=== PATIENT | female | born 1965 | race Caucasian/White ===

== ENCOUNTER → 2016-08-22 | Outpatient (CLI) | payer OTHER | LOC: FIMAGING 12:39 | PROVIDERS: ATTEND Obstetrics & Gynecology | DX: N63 Unspecified lump in breast (principal) | CPT/HCPCS: G0206 ==

== ENCOUNTER → 2017-02-07 | Outpatient (CLI) | payer OTHER | LOC: FIMAGING 15:09 | PROVIDERS: ATTEND Obstetrics & Gynecology | DX: Z12.31 Encounter for screening mammogram for malignant neoplasm of breast (principal); Z80.3 Family history of malignant neoplasm of breast | CPT/HCPCS: G0202 ==

== ENCOUNTER → 2018-02-08 | Outpatient (CLI) | payer OTHER | LOC: FIMAGING 09:39 | PROVIDERS: ATTEND Obstetrics & Gynecology | DX: Z12.31 Encounter for screening mammogram for malignant neoplasm of breast (principal); Z80.3 Family history of malignant neoplasm of breast ==

== ENCOUNTER 2018-10-27 15:04 | Emergency (ER) | payer OTHER ==
[2018-10-27 15:13] VITALS: BP 116/71
[2018-10-27] MEDS ORDERED: TDAP ADULT 0.5 ML INJ (BOOSTRIX) IM ONE (15:14)
--- NOTE | 2018-10-27 15:18 | EDPHY ---
H & P Stated Complaint: Avulsed R index knuckle working artemio sink. Bleed controlled. Source: Patient Exam Limitations: No limitations - Personal History Current Tetanus/Diphtheria Vaccine: Unsure - Medical/Surgical History Hx Asthma: No Hx Chronic Respiratory Disease: No Hx Diabetes: No Hx Cardiac Disease: No Hx Renal Disease: No Hx Cirrhosis: No Hx Alcoholism: No Hx HIV/AIDS: No Hx Splenectomy or Spleen Trauma: No Other PMH: Meniers Disease, appendectomy - Social History Smoking Status: Never smoked Time Seen by Provider: 10/27/18 15:14 HPI/ROS: HPI: This is a 52-year-old female who presents with Chief Complaint: Laceration right index finger Location: Right index finger Quality: Laceration Duration: Prior to arrival Signs and Symptoms: + bleeding, no radiation, no numbness, no weakness, no tingling, no incontinence, no decreased range of motion, no swelling, no pain, no fever Timing: Acute Severity: Mild Context: Patient is right-hand dominant, presents with complaints of right index finger laceration over her "knuckle." Patient reports that she was trying to replace her fossa it when she was pulling on the ranch quite hard and slipped causing her right hand to hit the cabinet next to her. She felt immediate, constant, moderate pain that was nonradiating in nature. The area started to bleed immediately. She applied direct pressure but could not get the bleeding to stop. Denies radiation, weakness, decreased range of motion. Unsure of tetanus status. Not take any blood thinners. Modifying Factors: Direct pressure with transient relief of bleeding Comment: ROS: A comprehensive 10 system review of systems is otherwise negative aside from elements mentioned in the history of present illness. MEDICAL/SURGICAL/SOCIAL HISTORY: Medical history: Meniere disease. Does not take any regular medications. Surgical history: Appendectomy Social history: Nonsmoker. Drinks alcohol socially. CONSTITUTIONAL: Well-developed, well-nourished physically fit middle-aged white female, awake and alert, no obvious distress HEENT: Atraumatic and normocephalic, PERRL, EOMI. Nares patent; no rhinorrhea; no nasal mucosal edema. Tympanic membranes clear. Oropharynx clear, no exudate and moist pink mucosa. Airway patent. No lymphadenopathy. No meningismus. Cardiovascular: Normal S1/S2, regular rate, regular rhythm, without murmur rub or gallop. PULMONARY/CHEST: Symmetrical and nontender. Clear to auscultation bilaterally. Good air movement. No accessory muscle usage. ABDOMEN: Soft, nondistended, nontender, no rebound, no guarding, no peritoneal signs, no masses or organomegaly. No CVAT. EXTREMITIES: 2/2 radial pulses, investigation specialist strength 5/5, right index finger shows v- shaped avulsion over the DI P joint with scant active bleeding. DI P/PIP/MCP joints have full range of flexion extension. Light touch sensation intact., no clubbing, no cyanosis or edema. NEUROLOGICAL: no focal neuro deficits. GCS 15. Speech fluent. SKIN: Warm and dry, no erythema. no rash. Good capillary refill. (Juju Mcneill) Constitutional: Initial Vital Signs Temperature (C) 36.8 C 10/27/18 15:10 Heart Rate 76 10/27/18 15:10 Respiratory Rate 18 10/27/18 15:10 Blood Pressure 116/71 10/27/18 15:10 O2 Sat (%) 95 10/27/18 15:10 O2 Delivery Mode Room Air Allergies/Adverse Reactions: ampicillin [Ampicillin] Allergy (Mild, Verified 10/27/18 15:08) Other-Enter Comments erythromycin base [Erythromycin Base] Adverse Reaction (Verified 10/27/18 15:08) Other-Enter Comments tetracycline [Tetracycline] Adverse Reaction (Verified 10/27/18 15:08) Other-Enter Comments Medical Decision Making Procedures: Procedure: Laceration repair. Verbal consent was obtained from the patient. The 0.5 cm, v-shaped, simple, superficial laceration on the DI P joint of the right index finger was anesthetized in the usual fashion using 2 mL of 1% lidocaine without epinephrine. The wound was irrigated, draped and explored to its base with a gloved finger. There were no deep structures involved. No tendon injury was identified. The wound was repaired with #3, 5-0 Prolene in simple interrupted pattern. Good hemostasis was achieved and patient tolerated procedure well. Xeroform and clean sterile dressing applied. The procedure was performed by myself. (Juju Mcneill) ED Course/Re-evaluation: Tetanus booster given. Local anesthesia provided and copiously irrigated Laceration repaired with #3 nonabsorbable sutures Xeroform and clean sterile dressing applied Verbal and written wound care instructions provided No signs of neurovascular compromise/tenting of skin/compartment syndrome/ extremities and joints examined above and below area of concern and are neurovascularly intact. This patient was seen under the supervision of my secondary supervising physician. I evaluated and cared for this patient independently. (Juju Mcneill) Differential Diagnosis: Differential diagnosis includes but is not limited to fracture, foreign body, laceration, skin avulsion, skin tear, nerve injury, tendon injury, nail injury. (Juju Mcneill) Other Provider: The patient was evaluated and managed by the Physician Shirt Ironer. My co-signature indicates that I have reviewed this chart and I agree with the findings and plan of care as documented. I am the secondary supervising physician. (Rahel Sheikh) - Data Points Medications Given: Discontinued Medications Diphtheria/Tetanus/Acell Pertussis (Boostrix) 0.5 ml IM .ONCE ONE Stop: 10/27/18 15:15 Last Admin: 10/27/18 15:18 Dose: 0.5 ml Departure - Departure Disposition: Home, Routine, Self-Care Clinical Impression: Laceration of index finger of right hand without complication Condition: Good Instructions: Care For Your Stitches (ED), Finger Laceration (ED) Additional Instructions: Keep the dressing dry and in place for 48 hours. After 48 hours, you may remove the dressing; wash the site daily with mild soap and water; then pat dry. Apply topical antibiotic ointment and keep covered with sterile dressing until fully healed. Do not soak in a bathtub or go swimming until sutures are removed. Take Tylenol 650 mg every 4 hours and/or Ibuprofen 600 mg every 8 hours with food as needed for pain. Wound Care Follow-Up: Removal of sutures in [ 10 ] days. Suture removal is complimentary in uncomplicated cases. Infection or abnormal findings would require reevaluation by the MD. In that case, you may be billed. Referrals: Stuart Wan MD [Medical Doctor] - Follow Up Only If Needed
== END 2018-10-27 15:40 | disposition home or self-care (01) ==
PROC: 0HQFXZZ Repair Right Hand Skin, External Approach (ICD-10-PCS; principal; 2018-10-27)
DX: S61.210A Laceration without foreign body of right index finger without damage to nail, initial encounter (principal); W22.09XA Striking against other stationary object, initial encounter; Y93.E9 Activity, other interior property and clothing maintenance; Y92.010 Kitchen of single-family (private) house as the place of occurrence of the external cause; H81.09 Meniere's disease, unspecified ear; Z23 Encounter for immunization